=== PATIENT | female | born 1955 | race Asian ===

== ENCOUNTER 2021-11-23 15:46 | Emergency (ER) | payer OTHER ==
[~2021-11-23] VITALS: Ht 152.4 cm; Wt 56.8 kg
[2021-11-23] MEDS ORDERED: CYCLOBENZAPRINE HCL 10 MG TABLET PO ONE (16:45)
[2021-11-23] MEDS ORDERED: CYCL10TA17 PO ×2 (18:05→18:28)
[2021-11-23 18:29] VITALS: BP 116/67
== END 2021-11-23 18:30 | disposition home or self-care (01) ==
LOC: EMS 15:48
DX: M79.10 Myalgia, unspecified site (principal); M79.651 Pain in right thigh; E78.00 Pure hypercholesterolemia, unspecified; I10 Essential (primary) hypertension
CPT/HCPCS: 73552; 99283